=== PATIENT | female | born 1980 | race Caucasian/White ===

== ENCOUNTER 2018-12-27 15:35 | Emergency (ER) | payer OTHER ==
[~2018-12-27] VITALS: Ht 170.2 cm; Wt 132.5 kg
[2018-12-27] MEDS ORDERED: IBUP200T45 PO (15:44)
[2018-12-27 16:43] LABS: INFLUENZA A AMPLIFICATION NEGATIVE (NEGATIVE); INFLUENZA B AMPLIFICATION NEGATIVE (NEGATIVE)
[2018-12-27 17:35] VITALS: BP 147/83
== END 2018-12-27 17:35 | disposition home or self-care (01) ==
LOC: M ED 15:35
DX: J02.8 Acute pharyngitis due to other specified organisms (principal)

== ENCOUNTER → 2018-12-29 | Outpatient (CLI) | payer OTHER ==
[~2018-12-29] MED LIST: AUGM875T28 PO; IBUP200T45 PO
--- NOTE | 2018-12-29 21:20 | REP ---
CHEST PA AND LATERAL: 12/29/2018. Clinical history: Abnormal breath sounds, right lower lobe crackles. Findings: There are no prior studies. The two-view show the lung jarquin well inflated. CP angles are sharply defined without evidence for effusion, lateral pleural thickening or apical scarring. Some peribronchial thickening in the perihilar regions that may reflect some bronchitis or reactive airway disease. I do not see dense consolidation with air bronchograms. No visible or significant atelectatic change. The heart, mediastinal and hilar contours, aorta and airway all unremarkable. Bony thorax without compression deformity of focal lesion. No free air under the diaphragm. Impression: 1. Some perihilar changes of bronchitis or reactive airway disease without dense consolidation or effusion. Electronically Signed by Miguelito Farrell MD 12/30/2018 12:36 P
== END ==
LOC: M LRY 12:36
PROVIDERS: ATTEND Nurse Practitioner Family
DX: R09.89 Other specified symptoms and signs involving the circulatory and respiratory systems (principal)

== ENCOUNTER → 2018-12-29 | Outpatient (REF) | payer OTHER, MEDICAID ==
[~2018-12-29] MED LIST changes: -AUGM875T28 PO
== END ==
LOC: M SFHCLERA 12:18
PROVIDERS: ATTEND Nurse Practitioner Family
DX: R53.81 Other malaise (principal)

== ENCOUNTER 2019-01-05 10:47 | Emergency (ER) | payer MEDICAID, OTHER ==
[~2019-01-05] VITALS: Ht 170.2 cm; Wt 131.7 kg
[2019-01-05 10:48] VITALS: BP 148/84
[2019-01-05] MEDS ORDERED: IPRATROPIUM 0.5MG/ALBUTEROL 2.5MG INH SOL UD 3ML (DUONEB)(J7620) NEB ONE (11:00)
--- NOTE | 2019-01-05 11:32 | REP ---
PA and lateral chest: Comparison is 12/29/2018. There are no infiltrates or pleural effusions. There are no masses or nodules. The lung jarquin otherwise clear. Cardiac size is upper normal. The mauri, mediastinum, and skeletal structures are unremarkable. Impression: There are no acute cardiopulmonary findings. Electronically Signed by Huan Borges MD 01/05/2019 11:24 A
[2019-01-05] MEDS ORDERED: AUGM875T28 PO (11:40)
== END 2019-01-05 11:48 | disposition home or self-care (01) ==
LOC: M ED 10:47
DX: J32.9 Chronic sinusitis, unspecified (principal); J06.9 Acute upper respiratory infection, unspecified; R50.9 Fever, unspecified

== ENCOUNTER → 2019-01-26 | Outpatient (CLI) | payer OTHER ==
[~2019-01-26] MED LIST changes: +AUGM875T28 PO
--- NOTE | 2019-01-26 17:46 | REP ---
Pelvic sonography: History: Irregular menstrual bleeding. Findings: Transabdominal and transvaginal scanning are performed. Uterine dimensions are 9.7 x 5.0 x 5.8 cm. A Nabothian cyst is seen in the cervix. No focal uterine mass is seen. Endometrial echo is thickened measuring 2.6 cm. It is somewhat heterogeneous. The patient was actually bleeding at the time of the scan. There are cystic areas in the endometrium which may reflect adenomyosis. A normal left ovary is seen measuring 3.3 x 2.5 x 3.0 cm. The right ovary contains a septated cyst measuring 3.7 x 3.6 x 4.4 cm. Inclusive of this, the right ovary dimensions are 6.1 x 4.5 x 5.6 cm. This cyst is better seen transabdominally than transvaginally. No free fluid. Impression: Septated 4.4 cm right ovarian cyst. A Nabothian cyst in the cervix. Heterogeneous thickening of the endometrium. Electronically Signed by Dwight Marinelli MD 01/26/2019 07:03 P
== END ==
LOC: M RAD 14:25
PROVIDERS: ATTEND Obstetrics & Gynecology
DX: N83.291 Other ovarian cyst, right side (principal); N88.8 Other specified noninflammatory disorders of cervix uteri; R93.89 Abnormal findings on diagnostic imaging of other specified body structures

== ENCOUNTER → 2019-12-14 | Outpatient (CLI) | payer OTHER ==
[2019-12-14 10:14] LABS: BASO % 0.5 % (0.0-1.0); EOS # 0.2 10^3/uL (0.0-0.5); EOS % 2.7 % (0.0-3.0); HEMATOCRIT 33.5 % (36.0-47.0); LYMPH # 2.4 10^3/uL (1.5-5.0); LYMPH % 27.3 % (24.0-44.0); MEAN CORPUSCULAR HEMOGLOBIN 19.3 pg (27.0-33.0); MEAN CORPUSCULAR HGB CONC 26.9 g/dl (32.0-36.5); MEAN CORPUSCULAR VOLUME 71.7 fl (80.0-96.0); MONO # 0.6 10^3/uL (0.0-0.8); MONO % 7.4 % (0.0-5.0); NEUTROPHILS # 5.4 10^3/uL (1.5-8.5); PLATELET COUNT, AUTOMATED 303 10^3/uL (150-450); RED BLOOD COUNT 4.67 10^6/uL (4.00-5.40); WHITE BLOOD COUNT 8.6 10^3/uL (4.0-10.0)
[2019-12-14 11:06] LABS: ALBUMIN 3.5 GM/DL (3.2-5.2); ALT/SGPT 21 U/L (12-78); BILIRUBIN,TOTAL 0.5 MG/DL (0.2-1.0); BLOOD UREA NITROGEN 11 MG/DL (7-18); CALCIUM LEVEL 8.9 MG/DL (8.5-10.1); CARBON DIOXIDE LEVEL 26 MEQ/L (21-32); CHLORIDE LEVEL 109 MEQ/L (98-107); CHOLESTEROL LEVEL 135 MG/DL (<200); CHOLESTEROL RISK RATIO 3.552 (<5); CREATININE FOR GFR 0.78 MG/DL (0.55-1.30); FERRITIN 8 NG/ML (8-252); FREE T4 0.85 NG/DL (0.76-1.46); GLOMERULAR FILTRATION RATE > 60.0 (>58); GLUCOSE, FASTING 83 MG/DL (70-100); HDL CHOLESTEROL 38 MG/DL (>40); IRON (FE) 17 UG/DL (50-170); LDL CHOLESTEROL 84 MG/DL (<100); NON-HDL-C 97 MG/DL; PERCENT SATURATION 4.8 % (13.2-45.0); POTASSIUM SERUM 4.2 MEQ/L (3.5-5.1); SODIUM LEVEL 141 MEQ/L (136-145); TOTAL IRON BINDING CAPACITY 351 UG/DL (250-450); TOTAL PROTEIN 6.8 GM/DL (6.4-8.2); TRIGLYCERIDES LEVEL 65 MG/DL (<150)
== END ==
LOC: M LAB 08:59
PROVIDERS: ATTEND Physician Assistant Medical
DX: D50.9 Iron deficiency anemia, unspecified (principal); E66.01 Morbid (severe) obesity due to excess calories; Z83.49 Family history of other endocrine, nutritional and metabolic diseases

== ENCOUNTER → 2020-02-28 | Outpatient (CLI) | payer OTHER ==
[2020-02-28 12:55] LABS: BASO % 0.4 % (0.0-1.0); EOS # 0.4 10^3/uL (0.0-0.5); HEMATOCRIT 33.9 % (36.0-47.0); LYMPH # 2.4 10^3/uL (1.5-5.0); LYMPH % 24.5 % (24.0-44.0); MEAN CORPUSCULAR HEMOGLOBIN 21.9 pg (27.0-33.0); MEAN CORPUSCULAR HGB CONC 29.5 g/dl (32.0-36.5); MEAN CORPUSCULAR VOLUME 74.3 fl (80.0-96.0); MONO # 0.7 10^3/uL (0.0-0.8); MONO % 6.6 % (0.0-5.0); NEUTROPHILS # 6.3 10^3/uL (1.5-8.5); NEUTROPHILS % 64.1 % (36.0-66.0); PLATELET COUNT, AUTOMATED 285 10^3/uL (150-450); RED BLOOD COUNT 4.56 10^6/uL (4.00-5.40); WHITE BLOOD COUNT 9.8 10^3/uL (4.0-10.0)
[2020-02-28 13:02] LABS: FREE T4 0.93 NG/DL (0.76-1.46); THYROID STIMULATING HORMONE 3.89 uIU/ML (0.358-3.740)
== END ==
LOC: M WUC 09:27
PROVIDERS: ATTEND Physician Assistant Medical
DX: D50.9 Iron deficiency anemia, unspecified (principal)